=== PATIENT | female | born 1960 | race African-American/Black ===

== ENCOUNTER 2016-06-26 10:06 | Emergency (ER) | payer OTHER ==
[2016-06-26 10:12] VITALS: BP 131/80
--- NOTE | 2016-06-26 10:15 | ER Document Report ---
ED Medical Screen (RME) - General Stated Complaint: SORE THROAT Mode of Arrival: Ambulatory Information source: Patient Notes: Patient complains of diarrhea and sore throat for the past 3 days. Patient reports fever off and on. Patient reports diarrhea 2 episodes today. I have greeted and performed a rapid initial assessment of this patient. A comprehensive ED assessment and evaluation of the patient, analysis of test results and completion of the medical decision making process will be conducted by additional ED providers. TRAVEL OUTSIDE OF THE [place] IN LAST 30 DAYS: No - Related Data Allergies/Adverse Reactions: Penicillins Allergy (Intermediate, Verified 04/26/15 11:30) Generalized rash Past Medical History - Past Medical History Cardiac Medical History: Denies: Hx Coronary Artery Disease, Hx Heart Attack, Hx Hypertension Pulmonary Medical History: Reports: Hx Pneumonia - YEARS AGO Denies: Hx Asthma, Hx Bronchitis, Hx COPD Neurological Medical History: Denies: Hx Cerebrovascular Accident, Hx Seizures Musculoskeltal Medical History: Denies Hx Arthritis Past Surgical History: Denies: Hx Hysterectomy - Immunizations Hx Diphtheria, Pertussis, Tetanus Vaccination: Yes Physical Exam - Vital signs Vitals: Temp Pulse Resp BP Pulse Ox 99.0 F 79 16 131/80 H 96 06/26/16 10:10 06/26/16 10:10 06/26/16 10:10 06/26/16 10:10 06/26/16 10:10 - HEENT Pharynx: Erythema. No: Exudate, Potential airway comprom. Course - Vital Signs Vital signs: Temp Pulse Resp BP Pulse Ox 99.0 F 79 16 131/80 H 96 06/26/16 10:10 06/26/16 10:10 06/26/16 10:10 06/26/16 10:10 06/26/16 10:10
--- NOTE | 2016-06-26 11:38 | ER Document Report ---
[id number] Mode of Arrival: Ambulatory Information source: Patient Notes: 55-year-old female presents with complaints of a sore throat. 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 Patient notes multiple sick contacts. Admits to fevers denies any nausea vomiting admits to body aches TRAVEL OUTSIDE OF THE [place] IN LAST 30 DAYS: No - HPI Onset: Other - Three-day duration Onset/Duration: Persistent Quality of pain: Achy Severity: Mild Pain Level: 1 Associated symptoms: Fever, Sore throat Exacerbated by: Food Relieved by: Denies Similar symptoms previously: No Recently seen / treated by doctor: No - Related Data Allergies/Adverse Reactions: Penicillins Allergy (Intermediate, Verified 06/26/16 10:17) Generalized rash Past Medical History - General Information source: Patient - Social History Smoking Status: Never Smoker Cigarette use (# per day): No Chew tobacco use (# tins/day): No Smoking Education Provided: No Family History: Reviewed & Not Pertinent Patient has suicidal ideation: No Patient has homicidal ideation: No - Past Medical History Cardiac Medical History: Denies: Hx Coronary Artery Disease, Hx Heart Attack, Hx Hypertension Pulmonary Medical History: Reports: Hx Pneumonia - YEARS AGO Denies: Hx Asthma, Hx Bronchitis, Hx COPD Neurological Medical History: Denies: Hx Cerebrovascular Accident, Hx Seizures Renal/ Medical History: Denies: Hx Peritoneal Dialysis Musculoskeltal Medical History: Denies Hx Arthritis Past Surgical History: Denies: Hx Hysterectomy - Immunizations Hx Diphtheria, Pertussis, Tetanus Vaccination: Yes Review of Systems - Review of Systems Notes: PHYSICAL EXAMINATION: GENERAL: Well-appearing, well-nourished and in no acute distress. HEAD: Atraumatic, normocephalic. EYES: Pupils equal round and reactive to light, extraocular movements intact, conjunctiva are normal. ENT: Nares patent, oropharynx clear without exudates. Moist mucous membranes. NECK: Normal range of motion, supple without lymphadenopathy uvula midline airway patent LUNGS: Breath sounds clear to auscultation bilaterally and equal. No wheezes rales or rhonchi. HEART: Regular rate and rhythm without murmurs ABDOMEN: Soft, nontender, nondistended abdomen. No guarding, no rebound. No masses appreciated. Female : deferred Musculoskeletal: Normal range of motion, no pitting or edema. No cyanosis. NEUROLOGICAL: Cranial nerves grossly intact. Normal speech, normal gait. Normal sensory, motor exams PSYCH: Normal mood, normal affect. SKIN: Warm, Dry, normal turgor, no rashes or lesions noted. Physical Exam - Vital signs Vitals: Temp Pulse Resp BP Pulse Ox 99.0 F 79 16 131/80 H 96 06/26/16 10:10 06/26/16 10:10 06/26/16 10:10 06/26/16 10:10 06/26/16 10:10 Course - Re-evaluation Re-evalutation: 06/26/16 20:45 Patient is positive for strep, notes hives tonight penicillin, patient notes she 's never had any issues with amoxicillin before. I will discharge the patient on amoxicillin with the understanding that she return immediately if there are any other concerns After performing a Medical Screening Examination, I estimate there is LOW risk for ACUTE CORONARY SYNDROME, RESPIRATORY FAILURE, SEPSIS OR MENINGITIS, thus I consider the discharge disposition reasonable. The patient and I have discussed the diagnosis and risks, and we agree with discharging home with close follow- up. We also discussed returning to the Emergency Department immediately if new or worsening symptoms occur. We have discussed the symptoms which are most concerning (e.g., changing or worsening pain, trouble swallowing or breathing, neck stiffness, fever) that necessitate immediate return. - Vital Signs Vital signs: Temp Pulse Resp BP Pulse Ox 99.0 F 79 16 131/80 H 96 06/26/16 10:10 06/26/16 10:10 06/26/16 10:10 06/26/16 10:10 06/26/16 10:10 Discharge - Discharge Clinical Impression: Strep pharyngitis Fever Qualifiers: Fever type: unspecified Qualified Code(s): R50.9 - Fever, unspecified Condition: Stable Disposition: HOME, SELF-CARE Instructions: Strep Throat ([facility]) Additional Instructions: Follow up with your physician tomorrow for further care or return to the ED IMMEDIATELY if symptoms worsen or new concerns occur Prescriptions: Amoxicillin 875 mg PO BID #20 tablet Forms: Return to Work
== END 2016-06-26 11:45 | disposition home or self-care (01) ==
LOC: ER 10:06
DX: J02.0 Streptococcal pharyngitis (principal); R50.9 Fever, unspecified; Z88.0 Allergy status to penicillin
CPT/HCPCS: 87880; 99283

== ENCOUNTER 2019-06-10 16:20 | Emergency (ER) | payer OTHER ==
[2019-06-10] MEDS ORDERED: ACETAMINOPHEN 325 MG TABLET PO ONE (17:43)
--- NOTE | 2019-06-10 17:43 | ER Document Report ---
ED Medical Screen (RME) - General Chief Complaint: High Blood Pressure Stated Complaint: HIGH BLOOD PRESSURE Time Seen by Provider: 06/10/19 17:33 Primary Care Provider: [facility] [Provider Group] - Follow up as needed [facility] [Provider Group] - Follow up as needed Mode of Arrival: Ambulatory Information source: Patient Notes: 58-year-old female presented to ED for complaint of sinus pressure, headache, dizzy at work, and high blood pressure. She does have a history of high blood pressure. Her blood pressure is 158/82 in the emergency room. She states that her primary care doctor has told her that she is going to give her blood pressure medicine the next time she sees her. She states she is having a headache at this time. Lungs clear respirations regular nonlabored. She does have sinus congestion nasal turbinates are swollen and purulent drainage. She does have postnasal drip. TRAVEL OUTSIDE OF THE [place] IN LAST 30 DAYS: No - HPI Onset: Other - 4 days Onset/Duration: Intermittent Quality of pain: Achy, Pressure Severity: Moderate Pain Level: 4 Associated Symptoms: Cough (nonproductive), Headache, Rhinorrhea, Sinus pain/drainage Exacerbated by: Movement, Coughing Relieved by: Denies Similar symptoms previously: Yes Recently seen / treated by doctor: No - Related Data Smoking: Non-smoker Allergies/Adverse Reactions: Penicillins Allergy (Intermediate, Verified 06/10/19 17:33) Generalized rash Past Medical History - General Information source: Patient - Social History Cigarette use (# per day): No Chew tobacco use (# tins/day): No Frequency of alcohol use: None Drug Abuse: None Lives with: Family Family history: Reviewed & Not Pertinent - Past Medical History Cardiac Medical History: Reports: Hx Hypertension Pulmonary Medical History: Reports: Hx Pneumonia - YEARS AGO Neurological Medical History: Reports: None Endocrine Medical History: Reports: None Renal/ Medical History: Reports: Other - Fibroids Malignancy Medical History: Reports: None GI Medical History: Reports: Hx Colonoscopy Musculoskeltal Medical History: Reports Hx Musculoskeletal Deformity, Reports Hx Musculoskeletal Trauma Skin Medical History: Reports None Psychiatric Medical History: Reports: None Traumatic Medical History: Reports: None Infectious Medical History: Reports: None - Still Past Surgical History: Reports: Hx Section, Hx Orthopedic Surgery - Immunizations Hx Diphtheria, Pertussis, Tetanus Vaccination: Yes Review of Systems - Review of Systems Constitutional: Recent illness EENT: No symptoms reported, Nose congestion, Nose discharge, Sinus pressure, Sinus discharge Cardiovascular: No symptoms reported Respiratory: Cough Gastrointestinal: No symptoms reported Genitourinary: No symptoms reported Female Genitourinary: No symptoms reported Musculoskeletal: No symptoms reported Skin: No symptoms reported Hematologic/Lymphatic: No symptoms reported Neurological/Psychological: Headaches -: Yes All other systems reviewed and negative Physical Exam - Vital signs Vitals: Temp Pulse Resp BP Pulse Ox 98.7 F 70 20 158/84 H 97 06/10/19 16:56 06/10/19 16:56 06/10/19 16:56 06/10/19 16:56 06/10/19 16:56 Interpretation: Normal - General General appearance: Appears well, Alert - HEENT Head: Normocephalic, Atraumatic Eyes: Normal Pupils: PERRL Ears: Normal External canal: Normal Tympanic membrane: Normal Sinus: Normal Nasal: Purulent discharge, Swelling Mouth/Lips: Normal Mucous membranes: Normal Pharynx: Post nasal drainage Neck: Normal - Respiratory Respiratory status: No respiratory distress Chest status: Nontender Breath sounds: Nonproductive cough Chest palpation: Normal - Cardiovascular Rhythm: Regular Heart sounds: Normal auscultation Murmur: No - Abdominal Inspection: Normal Distension: No distension Bowel sounds: Normal Tenderness: Nontender Organomegaly: No organomegaly - Back Back: Normal, Nontender - Extremities General upper extremity: Normal inspection, Nontender, Normal color, Normal ROM, Normal temperature General lower extremity: Normal inspection, Nontender, Normal color, Normal ROM, Normal temperature, Normal weight bearing. No: Tanisha's sign - Neurological Neuro grossly intact: Yes Cognition: Normal Orientation: AAOx4 Edward Coma Scale Eye Opening: Spontaneous Edward Coma Scale Verbal: Oriented Steedman Coma Scale Motor: Obeys Commands Edward Coma Scale Total: 15 Speech: Normal Motor strength normal: LUE, RUE, LLE, RLE Sensory: Normal - Psychological Associated symptoms: Normal affect, Normal mood - Skin Skin Temperature: Warm Skin Moisture: Dry Skin Color: Normal Course - Re-evaluation Re-evalutation: 06/10/19 20:52 After performing a Medical Screening Examination, I estimate there is LOW risk for ACUTE CORONARY SYNDROME, RESPIRATORY FAILURE, SEPSIS OR MENINGITIS, thus I consider the discharge disposition reasonable. I have reevaluated this patient multiple times and no significant life threatening changes are noted. The patient and I have discussed the diagnosis and risks, and we agree with discharging home with close follow-up. We also discussed returning to the Emergency Department immediately if new or worsening symptoms occur. We have discussed the symptoms which are most concerning (e.g., changing or worsening pain, trouble swallowing or breathing, neck stiffness, fever) that necessitate immediate return. Patient was also given instructions for control of her cough and cold symptoms to include headache nasal congestion runny nose. She does have elevated blood pressure was told not to use any of the normal cough and cold medicine as these would elevate her blood pressure she needs to use Coricidin HBP. Patient verbalized understanding and agreement treatment plan. - Vital Signs Vital signs: Temp Pulse Resp BP Pulse Ox 98.0 F 70 20 147/86 H 99 06/10/19 20:32 06/10/19 16:56 06/10/19 20:32 06/10/19 20:32 06/10/19 20:32 - Diagnostic Test Radiology reviewed: Image reviewed, Reports reviewed Doctor's Discharge - Discharge Clinical Impression: URI (upper respiratory infection) Qualifiers: URI type: unspecified viral URI Qualified Code(s): J06.9 - Acute upper respiratory infection, unspecified Condition: Stable Disposition: HOME, SELF-CARE Additional Instructions: UPPER RESPIRATORY ILLNESS: You have a viral infection of the respiratory passages -- a "cold." This common infection causes nasal congestion, drainage, and often sore throat and cough. It is highly contagious. The disease usually lasts about 10 to 14 days. There is no "cure" for the viral infection -- it must run its course. If there is a complication, such as bacterial infection in the nose, sinuses, middle ear, or bronchial tubes, antibiotics may be required. The antibiotics won't affect the virus. Drink plenty of fluids. A humidifier may help. An expectorant medication or decongestant may make you more comfortable. Use acetaminophen or ibuprofen for fever or aches. See the doctor if fever persists over two days, if there is any significant worsening of your symptoms, or if you simply fail to improve as expected. You have been recommended treatment with single HP. You could also use Flonase which is exmp-[id number] 1 spray each nostril twice a day. You could also use salt soda solution gargles. These will help to remove the drainage from the back your throat. Chloraseptic spray was infp-mql-[id number] that will also help with your sore throat. Salt and soda solution gargle 1 quart of water 1 tablespoon of salt 1 teaspoon of baking soda Mixed 3 ingredients together and boil for 1 minute Placed in a covered quart jar Use 1/2 ounce of cold solution to gargle 3 times a day USE OF ACETAMINOPHEN (Tylenol): Acetaminophen may be taken for pain relief or fever control. It's much safer than aspirin, offering a wider range of "safe" dosages. It is safe during . Some brand names are Tylenol, Panadol, Datril, Anacin 3, Tempra, and Liquiprin. Acetaminophen can be repeated every four hours. The following are maximum recommended dosages: >89 pounds or adults 650 mg to 900 mg Acetaminophen can be repeated every four hours. Maximum dose not to exceed 4000 mg a day. FOLLOW-UP CARE: If you have been referred to a physician for follow-up care, call the physicians office for an appointment as you were instructed or within the next two days. If you experience worsening or a significant change in your symptoms, notify the physician immediately or return to the Emergency Department at any time for re-evaluation. Forms: Return to Work Referrals: [facility] [Provider Group] - Follow up as needed [facility] [Provider Group] - Follow up as needed
--- NOTE | 2019-06-10 17:59 | RADIOLOGY REPORT (SQ) ---
EXAM DESCRIPTION: CHEST 2 VIEWS COMPLETED DATE/TIME: 06/10/2019 5:50 pm REASON FOR STUDY: cough COMPARISON: 09/26/2011. EXAM PARAMETERS: NUMBER OF VIEWS: two views TECHNIQUE: Digital Frontal and Lateral radiographic views of the chest acquired. RADIATION DOSE: NA LIMITATIONS: none FINDINGS: LUNGS AND PLEURA: No opacities, masses or pneumothorax. No pleural effusion. MEDIASTINUM AND HILAR STRUCTURES: No masses or contour abnormalities. HEART AND VASCULAR STRUCTURES: Heart normal size. No evidence for failure. BONES: No acute findings. HARDWARE: None in the chest. OTHER: No other significant finding. IMPRESSION: NO ACUTE RADIOGRAPHIC FINDING IN THE CHEST. TECHNICAL DOCUMENTATION: JOB ID: [id number] [email or web address]- All Rights Reserved Reading location - IP/workstation name: [email or web address]
[2019-06-10 20:33] VITALS: BP 147/86
== END 2019-06-10 20:33 | disposition home or self-care (01) ==
LOC: ER 16:20
DX: R51 Headache (principal); R42 Dizziness and giddiness; R09.81 Nasal congestion; R09.82 Postnasal drip; R05 Cough; J34.89 Other specified disorders of nose and nasal sinuses; J06.9 Acute upper respiratory infection, unspecified; I10 Essential (primary) hypertension; Z79.899 Other long term (current) drug therapy
CPT/HCPCS: 71046; 99283

== ENCOUNTER 2020-01-26 12:27 | Inpatient (IN) | payer OTHER ==
[2020-01-26] MEDS ORDERED: RINGERS SOLUTION,LACTATED 1,000 ML IV ONE (13:26)
--- NOTE | 2020-01-26 13:28 | ER Document Report ---
ED General - General Chief Complaint: Shortness Of Breath Stated Complaint: SHORTNESS OF BREATH/COUGHING BLOOD Time Seen by Provider: 01/26/20 13:12 TRAVEL OUTSIDE OF THE [place] IN LAST 30 DAYS: No - HPI Notes: Patient is a 59-year-old female who presents to the emergency department for evaluation of shortness of breath, hemoptysis, cough. She states her cough started for 5 days ago. She had a telehealth visit with her primary care provider, who started her on something "for mucus." She states she has been taking that. Yesterday she started feeling short of breath. She states now she is coughing up intermittent amounts of bright red blood. She has pain in her chest and in her back. She states it primarily only hurts when she is coughing. Her shortness of breath is worsened by exertion, improved somewhat by rest. She denies any recent prolonged travel or immobilization. She has no recent surgeries. No personal history of cancer. No family history of blood clots to her knowledge. She denies any fevers. She states she had some nausea last week but it has resolved. She had diarrhea 2 weeks ago, but it has resolved as well. - Related Data Allergies/Adverse Reactions: Penicillins Allergy (Intermediate, Verified 01/26/20 12:56) Generalized rash Home Medications: Norvasc and medication for congestion Past Medical History - General Information source: Patient - Social History Smoking Status: Never Smoker Frequency of alcohol use: None Drug Abuse: None Family History: None, Reviewed & Not Pertinent - Past Medical History Cardiac Medical History: Reports: Hx Hypertension Pulmonary Medical History: Reports: Hx Pneumonia - YEARS AGO GI Medical History: Reports: Hx Colonoscopy Musculoskeletal Medical History: Reports Hx Musculoskeletal Deformity, Reports Hx Musculoskeletal Trauma Past Surgical History: Reports: Hx Section - X2, Hx Orthopedic Surgery - Right shoulder - Immunizations Hx Diphtheria, Pertussis, Tetanus Vaccination: Yes Review of Systems - Review of Systems Constitutional: Weakness EENT: No symptoms reported Cardiovascular: No symptoms reported Respiratory: See HPI Gastrointestinal: See HPI Genitourinary: No symptoms reported Musculoskeletal: No symptoms reported Skin: No symptoms reported Neurological/Psychological: No symptoms reported Physical Exam - Vital signs Vitals: Temp Pulse Resp BP Pulse Ox 99.7 F 115 H 22 H 133/85 H 88 L 01/26/20 12:40 01/26/20 12:40 01/26/20 12:40 01/26/20 12:40 01/26/20 12:40 - Notes Notes: This is a 59-year-old female who appears her stated age, in a mild amount of distress. She is mildly tachypneic. Vital signs reviewed, please refer to chart. Head is normocephalic, atraumatic. Pupils equal round, reactive to light. Neck is supple without meningismus. Heart is tachycardic with normal S1-S2. Lungs reveal diminished sounds without wheezes, rales, rhonchi. Abdomen is soft, nontender, normoactive bowel sounds throughout. Extremities without cyanosis, clubbing. Posterior calves are nontender. Peripheral pulses are equal. Skin is warm and dry. Patient is awake, alert, neurological exam is nonfocal. Course - Re-evaluation Re-evalutation: 01/26/20 13:28 Patient presents to the emergency department for evaluation. She is found be hypoxic. She is placed on a dock operator, oxygen per nasal cannula. She has an IV ordered, as well as blood work. Given her tachycardia, chest pain, and hemoptysis, I am concerned about the possibility of a pulmonary embolus in this patient, despite her lack of risk factors. Decision was made to proceed with CT angiogram of the chest. I have also ordered blood cultures and lactic acid. Patient is currently stable, we will continue to monitor. 01/26/20 15:48 I was contacted by radiology, notified that patient has multiple pulmonary emboli bilaterally with associated pulmonary infarctions. She is also starting to show right heart strain. I went back in and saw the patient. I will start her on heparin, as I am concerned given the fact that she is having some hemoptysis. She does not have any other significant risk factors, so I am concerned about positive COVID 19 testing. I will cover her for pneumonia as well with Rocephin and Zithromax. I will contact internal medicine for admission. 01/26/20 15:[address] Nelson of the internal medicine service. He is concerned about her right heart strain. He recommends an echocardiogram to evaluate the degree of right heart strain. He is concerned that, depending on the degree of her rig ht heart strain, that she may need transfer for possible catheter directed thrombolysis. I spoke with Dr. Pichardo, he is agreeable to interpreting the study. 01/26/20 18:08 Right heart was not adequately assessed. I did call the hospitalist back, he again states that the patient would be best served by going to a tertiary center. I called [facility] at [phone]. They have no beds, no wait list at this time. I contacted [facility]. They do have a wait list, but I am awaiting phone call from hospitalist. I do suspect COVID is likely etiology of this patient's bilateral pulmonary emboli, so I am expecting a phone call from the COVID physician. 01/26/20 18:50 Notified by nursing that patient was complaining of an increase in her right- sided chest pain. Her vitals remained stable. Morphine and Zofran ordered. 01/26/20 19:[address] Kaba, on-call COVID physician at [facility]. She is going to discuss current protocols for excepting rule out COVID patients with the [facility]. She will reach out when she has more information. 01/26/20 19:35 Physician from [facility] calls me back. She states that she does not see any indication for transfer at this time, as she does not believe that any sort of intervention is necessary at this time, secondary to her lack of hemodynamic instability. She recommends ICU admission. I will speak to the ICU core maker. Farhan Berkowitz, ELDA, will come down and evaluate the patient. 01/26/20 20:04 The core maker nurse practitioner came down and evaluated the patient. The patient is feeling improved. She could not appreciate any right ventricular dilation on the patient's exams. She agrees that keeping the patient here is a very reasonable plan. I spoke with Dr. Cardenas. He will admit the patient for further care. COVID testing for this patient is already pending. - Vital Signs Vital signs: Temp Pulse Resp BP Pulse Ox 99.7 F 115 H 26 H 152/102 H 91 L 01/26/20 12:40 01/26/20 12:40 01/26/20 18:01 01/26/20 19:00 01/26/20 19:01 - Laboratory Result Diagrams: 01/26/20 13:50 01/26/20 13:50 Laboratory results interpreted by me: 01/26/20 01/26/20 01/26/20 13:50 13:50 13:50 WBC 14.7 H Plt Count 507 H Lymph % (Auto) 12.8 L Absolute Neuts (auto) 11.3 H PT 15.8 H Glucose 138 H - Diagnostic Test Radiology reviewed: Reports reviewed Radiology results interpreted by me: 01/26/20 15:50 Chest X-Ray 01/26/20 00:00 IMPRESSION: Low lung volumes. Right pleural effusion. Cannot exclude minimal left pleural effusion. Borderline heart size as described. No karson pulmonary edema. Chest/Abdomen CTA 01/26/20 13:24 IMPRESSION: Multiple bilateral segmental and subsegmental pulmonary emboli with findings of early right heart strain. While peripheral multifocal airspace opacities may represent small pulmonary infarcts, superimposed infection is not excluded. - EKG Interpretation by Me Additional EKG results interpreted by me: 01/26/20 15:50 Sinus tachycardia at the rate of 109 bpm. Normal axis and intervals. T wave inversions, near global, concerning for ischemia. No old studies available for comparison. Critical Care Note - Critical Care Note Total time excluding time spent on procedures (mins): 40 Discharge - Discharge Clinical Impression: Hypoxia, Bilateral pulmonary embolism, Person under investigation for COVID-19 Condition: Stable Disposition: ADMITTED INPATIENT Admitting Provider: Ronald (Hospitalist) Unit Admitted: [facility]
[2020-01-26 14:16] LABS: ABSOLUTE BASOPHILS # (AUTO) 0.1 10^3/uL (0.0-0.2); ABSOLUTE LYMPHOCYTES (AUTO) 1.9 10^3/uL (0.5-4.7); ABSOLUTE MONOCYTES (AUTO) 1.4 10^3/uL (0.1-1.4); ABSOLUTE NEUT (AUTO) 11.3 10^3/uL (1.7-8.2); BASOPHILS % (AUTO) 0.5 % (0-2); EOSINOPHILS % (AUTO) 0.1 % (0-6); HEMATOCRIT 38.7 % (36.0-47.0); HEMOGLOBIN 13.2 g/dL (12.0-15.5); LYMPHOCYTES % (AUTO) 12.8 % (13-45); MEAN CORPUSCULAR HEMOGLOBIN 28.3 pg (27.0-33.4); MEAN CORPUSCULAR HGB CONC 34.1 g/dL (32.0-36.0); MEAN CORPUSCULAR VOLUME 83 fl (80-97); MONOCYTES % (AUTO) 9.8 % (3-13); PLATELET COUNT 507 10^3/uL (150-450); RED BLOOD COUNT 4.67 10^6/uL (3.72-5.28); RED CELL DISTRIBUTION WIDTH 13.3 % (11.5-14.0); SEGMENTED NEUTROPHILS % (AUTO) 76.8 % (42-78); TOTAL CELLS COUNTED % (AUTO) 100 %; WHITE BLOOD COUNT 14.7 10^3/uL (4.0-10.5)
--- NOTE | 2020-01-26 14:18 | RADIOLOGY REPORT (SQ) ---
EXAM DESCRIPTION: CHEST SINGLE VIEW IMAGES COMPLETED DATE/TIME: 01/26/2020 1:47 pm REASON FOR STUDY: shortness of breath COMPARISON: 01/09/2020 EXAM PARAMETERS: NUMBER OF VIEWS: One view. TECHNIQUE: Single frontal radiographic view of the chest acquired. RADIATION DOSE: NA LIMITATIONS: None. FINDINGS: LUNGS AND PLEURA: Low lung volumes. Cannot exclude moderate right pleural effusion and mi nimal left pleural effusion. MEDIASTINUM AND HILAR STRUCTURES: No masses. Contour normal. HEART AND VASCULAR STRUCTURES: Heart size is borderline, accentuated by the low lung volumes. No fra nk pulmonary edema. BONES: No acute findings. HARDWARE: None in the chest. OTHER: No other significant finding. IMPRESSION: Low lung volumes. Right pleural effusion. Cannot exclude minimal left pleural effusion . Borderline heart size as described. No karson pulmonary edema. TECHNICAL DOCUMENTATION: JOB ID: [id number] 2010 [employer]- All Rights Reserved Reading location - IP/workstation name: [email or web address]
[2020-01-26 14:31] LABS: ALBUMIN 4.1 g/dL (3.5-5.0); ALKALINE PHOSPHATASE 88 U/L (38-126); ANION GAP 9 (5-19); ASPARTATE AMINO TRANSFERASE 30 U/L (14-36); BILIRUBIN,DIRECT 0.4 mg/dL (0.0-0.4); BILIRUBIN,TOTAL 0.7 mg/dL (0.2-1.3); BLOOD UREA NITROGEN 7 mg/dL (7-20); CALCIUM 9.3 mg/dL (8.4-10.2); CARBON DIOXIDE 29 mmol/L (22-30); CHLORIDE 101 mmol/L (98-107); GLUCOSE 138 mg/dL (75-110); TOTAL PROTEIN 7.9 g/dL (6.3-8.2)
--- NOTE | 2020-01-26 14:35 | EKG REPORT ---
SEVERITY:- ABNORMAL ECG - SINUS TACHYCARDIA PROBABLE LEFT ATRIAL ABNORMALITY NONSPECIFIC T ABNORMALITIES, DIFFUSE LEADS : Confirmed by: Misty Pichardo MD 26-Jan-2020 14:34:40
[2020-01-26] MEDS ORDERED: ENOXAPARIN SODIUM INJ 80 MG/0.8 ML DISP.SYRIN SUBCUT ONE (15:38)
--- NOTE | 2020-01-26 15:43 | RADIOLOGY REPORT (SQ) ---
EXAM DESCRIPTION: CTA CHEST IMAGES COMPLETED DATE/TIME: 01/26/2020 3:19 pm REASON FOR STUDY: chest pain, tachycardia, hemoptysis COMPARISON: Chest radiograph 01/26/2020 TECHNIQUE: CT scan of the chest performed using helical scanning technique with dynamic intravenous contrast injection. Images reviewed with lung, soft tissue and bone windows. Reconstructed coronal and sagittal MPR images reviewed. Additional 3 dimensional post-processing performed to develop Maximal Intensity Projection images (DE P). All images stored on PACS. All CT scanners at this facility use dose modulation, iterative reconstruction, and/or weight based d osing when appropriate to reduce radiation dose to as low as reasonably achievable (ALARA). [facility]: Dose Right [facility]: CareDose [facility]: Dose Right [facility]: Teradose 4D [facility]: OpenSpan CONTRAST TYPE AND DOSE: contrast/concentration: Isovue 350.00 mmol/ml; Total Contrast Delivered: 59. 0 ml; Total Saline Delivered: 70.0 ml Contrast bolus adequate for pulmonary arteries and aorta. RENAL FUNCTION: BUN 7; creatinine 0.86 RADIATION DOSE: CT Rad equipment meets quality standard of care and radiation dose reduction techniq ues were employed. CTDIvol: 9.9 - 26.6 mGy. DLP: 819 mGy-cm. . LIMITATIONS: None. FINDINGS: LUNGS AND PLEURA: Small multifocal airspace opacities in a predominantly peripheral distri bution with bibasilar consolidation versus atelectasis. Trace pleural effusion. No pneumothorax. AORTA AND GREAT VESSELS: No aneurysm. No dissection. HEART: No pericardial effusion. No significant coronary artery calcifications. PULMONARY ARTERIES: Pulmonary emboli are seen bilaterally within the segmental and extending into the subsegmental branches. Note is made of mild right heart strain. HILAR AND MEDIASTINAL STRUCTURES: Scattered mediastinal lymph nodes appear mildly prominent. HARDWARE: None in the chest. UPPER ABDOMEN: No significant findings. Limited exam. THYROID AND OTHER SOFT TISSUES: No masses. No adenopathy. BONES: No acute or significant finding. 3D MIPS: Confirm above findings. OTHER: No other significant finding. IMPRESSION: Multiple bilateral segmental and subsegmental pulmonary emboli with findings of early ri ght heart strain. While peripheral multifocal airspace opacities may represent small pulmonary infar cts, superimposed infection is not excluded. COMMENT: This report was called to TAMIKA GLASS DO at15:34 on 01/26/2020. Quality ID # [id number]: Final reports with documentation of one or more dose reduction techniques (e.g., Au tomated exposure control, adjustment of the mA and/or kV according to patient size, use of iterative reconstruction technique) TECHNICAL DOCUMENTATION: JOB ID: [id number] 2010 [employer]- All Rights Reserved Reading location - IP/workstation name: [email or web address] INCLUDES THE [facility] HOSPITALRomulo
[2020-01-26] MEDS ORDERED: HEPARIN SODIUM,PORCINE/D5W 25,000 UNIT/250 ML RTUINJ IV PRN (15:45)
[2020-01-26] MEDS ORDERED: HEPARIN SOD (PORCINE) 1,000 UNIT/ML 10 ML VIAL IV ONE (15:45)
[2020-01-26] MEDS ORDERED: CEFTRIAXONE 1 GM/D5W RTU 1 GM/50 ML RTUPB IV ONE (15:47)
[2020-01-26] MEDS ORDERED: AZITHROMYCIN INJ 500 MG VIAL IV ONE ×2 (15:47→19:15)
--- NOTE | 2020-01-26 17:47 | XCELERA REPORT ---
[address] [address] Transthoracic Echocardiogram Report Name: DIANA ZABALA Age: 59 yrs Gender: Female : 1960 Patient Status: Emergency Patient Location: ER Study Date: 01/26/2020 03:22 PM Height: 60 in Weight: 174 lb BSA: 1.8 m2 Procedure: A two-dimensional transthoracic echocardiogram with color flow and Doppler was performed. The study was technically limited with all images being suboptimal in quality. Reason For Study: eval right heart, BL PEs History: RrIGHT hEART fAILURE / bILATERAL PULMONARY EMBOLISM. Ordering Physician: TAMIKA GLASS Performed By: Alesia Quach Interpretation Summary RrIGHT hEART fAILURE / bILATERAL PULMONARY EMBOLISM The left ventricle is normal in size. There is normal left ventricular wall thickness. LV EF is 65% Left ventricular systolic function is normal. Doppler measurements suggest pseudonormalized left ventricular relaxation, which is associated with grade II/IV or mild to moderate diastolic dysfunction The left ventricular wall motion is normal. There is no thrombus. cANNOT ASSESS ASD,VSD,OR PFO SEEN. RV NOT ADEQAUTELY ASSESSED. Right atrium not well visualized secondary to technical limitations The left atrial size is normal. There is no evidence of mitral valve prolapse. There is no vegetation seen on the mitral valve. There is no mitral valve stenosis. There is a trace amount of mitral regurgitation There is no aortic valvular vegetation. There is no aortic valve stenosis There is no LVOT obstruction. No aortic regurgitation is present. There is no tricuspid stenosis. There is a trace amount of tricuspid regurgitation There is mild pulmonary hypertension by echo RVSP is 34 mm of Hg , with RA mean of 10. There is no pulmonic valvular stenosis. There is no pulmonic valvular regurgitation. The aortic root is not well visualized but is probably normal size. The inferior vena cava was not well visualized There is no pericardial effusion. MMode/2D Measurements & Calculations RVDd: 1.9 cm LVIDd: 3.8 cm FS: 30.4 % Ao root diam: 1.8 cm IVSd: 0.76 cm LVIDs: 2.6 cm EDV(Teich): 61.2 ml Ao root area: 2.5 cm2 LVPWd: 0.86 cm ESV(Teich): 25.3 ml EF(Teich): 58.6 % Doppler Measurements & Calculations MV E max soto: MV dec slope: Ao V2 max: LV V1 max P.3 cm/sec 529.2 cm/sec2 154.4 cm/sec 5.7 mmHg MV A max soto: MV dec time: 0.15 secAo max PG: LV V1 max: 129.6 cm/sec 9.5 mmHg 119.7 cm/sec MV E/A: 0.60 PA V2 max: TR max soto: 89.5 cm/sec 247.0 cm/sec PA max P.2 mmHg TR max P.4 mmHg Left Ventricle The left ventricle is normal in size. There is normal left ventricular wall thickness. LV EF is 65%. Left ventricular systolic function is normal. Doppler measurements suggest pseudonormalized left ventricular relaxation, which is associated with grade II/IV or mild to moderate diastolic dysfunction. The left ventricular wall motion is normal. There is no thrombus. cANNOT ASSESS ASD,VSD,OR PFO SEEN. Right Ventricle RV NOT ADEQAUTELY ASSESSED. Atria Right atrium not well visualized secondary to technical limitations. The left atrial size is normal. Mitral Valve There is no evidence of mitral valve prolapse. There is no vegetation seen on the mitral valve. There is no mitral valve stenosis. There is a trace amount of mitral regurgitation. Aortic Valve There is no aortic valvular vegetation. There is no aortic valve stenosis. There is no LVOT obstruction. No aortic regurgitation is present. Tricuspid Valve There is no tricuspid stenosis. There is a trace amount of tricuspid regurgitation. There is mild pulmonary hypertension by echo. RVSP is 34 mm of Hg , with RA mean of 10. Pulmonic Valve There is no pulmonic valvular stenosis. There is no pulmonic valvular regurgitation. Great Vessels The aortic root is not well visualized but is probably normal size. The inferior vena cava was not well visualized. Effusions There is no pericardial effusion. : TAMIKA GLASS, Misty
[2020-01-26 18:24] LABS: INTERNATIONAL RATION (INR) 1.25; PROTHROMBIN TIME 15.8 SEC (11.4-15.4)
[2020-01-26] MEDS ORDERED: HEPARIN SOD (PORCINE) 1,000 UNIT/ML 10 ML VIAL IV PRN (18:46)
[2020-01-26] MEDS ORDERED: MORPHINE SULFATE 10 MG/ML INJ IV ONE (18:48)
[2020-01-26] MEDS ORDERED: ONDANSETRON HCL INJ/PF 4 MG/2 ML SDV IV ONE (18:49)
[2020-01-26] MEDS ORDERED: OXYCODONE-ACETAMINOPHEN 5-325 MG TABLET PO PRN ×2 (20:44→20:52)
[2020-01-26] MEDS ORDERED: PROMETHAZINE HCL INJ 25 MG/1 ML VIAL IV PRN (20:44)
[2020-01-26] MEDS ORDERED: ONDANSETRON HCL INJ/PF 4 MG/2 ML SDV IV PRN (20:44)
[2020-01-26] MEDS ORDERED: IPRATROPIUM/ALBUTEROL 0.5-2.5 MG/3 ML AMPUL NEB PRN (20:44)
[2020-01-26] MEDS ORDERED: ACETAMINOPHEN 325 MG TABLET PO PRN (20:44)
[2020-01-26] MEDS ORDERED: MORPHINE SULFATE 10 MG/ML INJ IV PRN (20:51)
[2020-01-26] MEDS ORDERED: METOPROLOL TARTRATE PF/INJ 5 MG/5 ML SDV IV PRN (20:53)
[2020-01-26] MEDS ORDERED: HYDRALAZINE HCL INJ/PF 20 MG/1 ML SDV IV PRN (20:54)
[2020-01-26] MEDS: TEMAZEPAM 7.5 MG CAPSULE PO SCH (21:36)
[2020-01-26] MEDS: FAMOTIDINE 20 MG TABLET PO SCH (21:36)
[2020-01-26 21:55] LABS: ARTERIAL BLOOD BASE EXCESS 2.7 mmol/L; ARTERIAL BLOOD FIO2 4L; ARTERIAL BLOOD HCO3 26.9 mmol/L (20-24); ARTERIAL BLOOD O2 SATURATION 93.7 % (94-98); ARTERIAL BLOOD PCO2 39.8 mmHg (35-45); ARTERIAL BLOOD PH 7.45 (7.35-7.45); ARTERIAL BLOOD PO2 65.3 mmHg (80-100); ARTERIAL BLOOD TOTAL CO2 28.1 mmol/L (21-25)
[2020-01-26 21:59] LABS: C-REACTIVE PROTEIN 242.2 mg/L (<10.0)
--- NOTE | 2020-01-26 23:19 | PDOC H&P ---
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 In ED she was noted to be hypoxic, tachypneic, tachycardic, hypertensive, with leukocytosis and a CTA showed multiple bilateral segmental subsegmental pulmonary emboli with findings of early right heart strain, EKG T wave inversion and troponins were negative, a stat echo was done to rule out any right heart strain but unfortunately 2D echo was suboptimal and right ventricular function could not be assessed, attempt was made to transfer patient to tertiary center however they were not able and as per ED physician they suggested that patient can be managed at [facility] as she seems to be stable. Patient denies any fever, chills, nausea, vomiting, denies any history of previous DVT or PE, any lower extremity swelling or pain, tobacco abuse, denies any history of oral contraceptive intake or recent hospitalization or surgery, denies any recent travel, denies any personal or family history of hypercoagulable state. In ED patient was started on heparin drip and empiric IV antibiotics as patient may likely have COVID-19 given her presentation and nature of her work. Past Medical History Cardiac Medical History: Reports: Hypertension Pulmonary Medical History: Reports: Pneumonia - YEARS AGO Hematology: Denies: Anemia Past Surgical History Past Surgical History: Reports: Section - X2, Orthopedic Surgery - Right shoulder Social History Smoking Status: Never Smoker Family History Family History: None, Reviewed & Not Pertinent Parental Family History Reviewed: Yes Children Family History Reviewed: Yes Sibling(s) Family History Reviewed.: Yes Medication/Allergy Home Medications: Amlodipine Besylate [Norvasc 5 mg Tablet] 5 mg PO DAILY 01/26/20 Montelukast Sodium [Singulair 10 mg Tablet] 10 mg PO QHS 01/26/20 Allergies/Adverse Reactions: Penicillins Allergy (Intermediate, Verified 01/26/20 12:56) Generalized rash Review of Systems Review of Systems: as per hpi Physical Exam Vital Signs: Temp Pulse Resp BP Pulse Ox 99.7 F 115 H 29 H 134/95 H 94 01/26/20 12:40 01/26/20 12:40 01/26/20 22:00 01/26/20 22:00 01/26/20 22:00 Intake & Output 01/25/20 01/26/20 01/27/20 06:59 06:59 06:59 Intake Total 1366 Balance 1366 Weight 79.3 kg General appearance: PRESENT: mild distress, obese Head exam: PRESENT: atraumatic, normocephalic Respiratory exam: PRESENT: clear to auscultation moe, symmetrical, tachypnea. ABSENT: rales, rhonchi, wheezes Cardiovascular exam: PRESENT: RRR, tachycardia. ABSENT: diastolic murmur, rubs, systolic murmur GI/Abdominal exam: PRESENT: normal bowel sounds, soft. ABSENT: distended, guarding, mass, organolmegaly, rebound, tenderness Extremities exam: PRESENT: full ROM. ABSENT: calf tenderness, clubbing, pedal edema Neurological exam: PRESENT: alert, awake, oriented to person, oriented to place, oriented to time, oriented to situation, CN II-XII grossly intact. ABSENT: motor sensory deficit Skin exam: PRESENT: dry, intact, warm. ABSENT: cyanosis, rash Results Laboratory Results: 01/26/20 13:50 01/26/20 13:50 01/26/20 01/26/20 01/26/20 13:50 13:50 13:50 WBC 14.7 H RBC 4.67 Hgb 13.2 Hct 38.7 MCV 83 MCH 28.3 MCHC 34.1 RDW 13.3 Plt Count 507 H Seg Neutrophils % 76.8 Carbonic Acid HCO3/H2CO3 Ratio ABG pH ABG pCO2 ABG pO2 ABG HCO3 ABG O2 Saturation ABG Base Excess FiO2 Sodium 138.7 Potassium 4.0 Chloride 101 Carbon Dioxide 29 Anion Gap 9 BUN 7 Creatinine 0.86 Est GFR ( Amer) > 60 Glucose 138 H Lactic Acid Calcium 9.3 Ferritin 156.00 Total Bilirubin 0.7 AST 30 Alkaline Phosphatase 88 C-Reactive Protein 242.2 H Total Protein 7.9 Albumin 4.1 01/26/20 01/26/20 14:53 21:41 WBC RBC Hgb Hct MCV MCH MCHC RDW Plt Count Seg Neutrophils % Carbonic Acid 1.20 HCO3/H2CO3 Ratio 22:1 ABG pH 7.45 ABG pCO2 39.8 ABG pO2 65.3 L ABG HCO3 26.9 H ABG O2 Saturation 93.7 L ABG Base Excess 2.7 FiO2 4L Sodium Potassium Chloride Carbon Dioxide Anion Gap BUN Creatinine Est GFR ( Amer) Glucose Lactic Acid 1.8 Calcium Ferritin Total Bilirubin AST Alkaline Phosphatase C-Reactive Protein Total Protein Albumin 01/26/20 01/26/20 13:50 13:50 Troponin I < 0.012 NT-Pro-B Natriuret Pep 226 H Impressions: Chest X-Ray 01/26/20 00:00 IMPRESSION: Low lung volumes. Right pleural effusion. Cannot exclude minimal left pleural effusion. Borderline heart size as described. No karson pulmonary edema. Chest/Abdomen CTA 01/26/20 13:24 IMPRESSION: Multiple bilateral segmental and subsegmental pulmonary emboli with findings of early right heart strain. While peripheral multifocal airspace opacities may represent small pulmonary infarcts, superimposed infection is not excluded. Assessment and Plan - Diagnosis (1) Acute respiratory failure with hypoxemia Is this a current diagnosis for this admission?: Yes Plan: Multifactorial likely due to underlying multiple PE, complicated by possible community-acquired pneumonia on COVID-19 infection. ABG on admission PO2 of 65.3, SPO2 of 93.7 on 4 L. Admit to IMC, empiric IV antibiotics, duo nebs, IV steroids, pulmonary toil eting, incentive spirometry, flutter valve, sputum culture, blood culture, BiPAP. (2) Bilateral pulmonary embolism Is this a current diagnosis for this admission?: Yes Plan: Presented with shortness of breath and right-sided pleuritic chest pain. CTA positive for multiple PE, likely right heart strain, unfortunately a stat echo suboptimal and right ventricle function could not be assessed. EKG with T wave inversion and troponin 0.012. Denies any previous PE or DVT, denies any history of malignancy or OCP intake, denies any history of hypercoagulable state or any rheumatological disease, denies any recent travel or prolonged hospitalization or immobilization. Admit to IMCU, repeat EKG, repeat echo if right heart strain is suspected, IV heparin drip to be transitioned to new oral anticoagulants. Monitor vitals, if unstable please transfer to tertiary care center for possible embolectomy. (3) Pneumonia Is this a current diagnosis for this admission?: Yes Plan: Likely community-acquired pneumonia due to gram-positive's including strep pneumonia, COVID-19 infection is also a strong possibility. Elevated inflammatory markers. Sputum culture, IV azithromycin, IV ceftriaxone, IV dexamethasone, blood culture. May consider effervescent plasma transfusion and Remdisivir if a strong suspicion for COVID-19. Follow-up COVID-19 serology. Contact and droplet isolation. (4) Obesity Qualifiers: Body mass index: BMI 34.0-34.9 Is this a current diagnosis for this admission?: Yes Plan: BMI 34.1. Diet and lifestyle modification recommended. Will obtain TSH, lipid panel and hemoglobin A1c. (5) Hypertension Qualifiers: Hypertension type: essential hypertension Qualified Code(s): I10 - Essential (primary) hypertension Is this a current diagnosis for this admission?: Yes Plan: Euvolemic, mildly hypertensive. Monitor blood pressure, PRN IV hydralazine and metoprolol. May consider ROXI if A1c elevated. Adjust meds as needed. Outpatient PCP follow-up. - Time Time Spent with patient: 35 or more minutes Medications reviewed and adjusted accordingly: Yes Anticipated Discharge Disposition: Home, Self Care Anticipated Discharge Timeframe: within 72 hours
[2020-01-26] MEDS ORDERED: DEXTROSE 40% GEL 15 GM TUBE PO PRN ×2 (23:20)
[2020-01-26] MEDS ORDERED: DEXTROSE 50%-WATER 25 GM/50 ML DISP.SYRIN IV PRN ×2 (23:20)
[2020-01-26] MEDS ORDERED: GLUCAGON,HUMAN RECOMB 1 MG INJ IM PRN (23:20)
[2020-01-26] MEDS ORDERED: DEXAMETHASONE SOD PHOSPHATE INJ 4 MG/1 ML VIAL IV ONE (23:30)
[2020-01-27] MEDS: NORMAL SALINE 1000 ML 1,000 ML IV PRN ×2 (00:07→17:33)
[2020-01-27] MEDS: INSULIN LISPRO 100 UNIT/ML 3 ML VIAL SUBCUT SCH ×5 (00:59→18:35)
[2020-01-27 05:56] LABS: HEMATOCRIT 34.2 % (36.0-47.0); HEMOGLOBIN 11.6 g/dL (12.0-15.5); MEAN CORPUSCULAR HEMOGLOBIN 28.3 pg (27.0-33.4); MEAN CORPUSCULAR HGB CONC 34.1 g/dL (32.0-36.0); MEAN CORPUSCULAR VOLUME 83 fl (80-97); PLATELET COUNT 296 10^3/uL (150-450); RED BLOOD COUNT 4.12 10^6/uL (3.72-5.28); RED CELL DISTRIBUTION WIDTH 13.3 % (11.5-14.0); WHITE BLOOD COUNT 15.3 10^3/uL (4.0-10.5)
[2020-01-27] MEDS ORDERED: DEXAMETHASONE SOD PHOSPHATE INJ 4 MG/1 ML VIAL IV SCH (06:00)
[2020-01-27 06:19] LABS: ALBUMIN 3.5 g/dL (3.5-5.0); ALKALINE PHOSPHATASE 77 U/L (38-126); ANION GAP 7 (5-19); ASPARTATE AMINO TRANSFERASE 25 U/L (14-36); BILIRUBIN,DIRECT 0.5 mg/dL (0.0-0.4); BILIRUBIN,TOTAL 0.8 mg/dL (0.2-1.3); BLOOD UREA NITROGEN 7 mg/dL (7-20); CALCIUM 8.6 mg/dL (8.4-10.2); CARBON DIOXIDE 27 mmol/L (22-30); CHLORIDE 102 mmol/L (98-107); CHOLESTEROL 176.17 mg/dL (0-200); GLUCOSE 156 mg/dL (75-110); POTASSIUM 4.2 mmol/L (3.6-5.0); TRIGLYCERIDES 117 mg/dL (<150)
[2020-01-27 06:29] LABS: DIRECT LDL 105 mg/dL (<100)
[2020-01-27 06:35] LABS: FREE T4 (FREE THYROXINE) 1.27 ng/dL (0.78-2.19)
[2020-01-27 06:49] LABS: THYROID STIMULATING HORMONE 0.92 uIU/mL (0.47-4.68)
[2020-01-27] MEDS: IPRATROPIUM/ALBUTEROL 0.5-2.5 MG/3 ML AMPUL NEB SCH ×3 (08:05→20:12)
[2020-01-27] MEDS ORDERED: DOCUSATE SODIUM 100 MG/10 ML UDC PO SCH (10:00)
[2020-01-27] MEDS: ZINC SULFATE 220 MG CAPSULE PO SCH (10:09)
[2020-01-27] MEDS: AMLODIPINE BESYLATE 5 MG TABLET PO SCH (10:14)
[2020-01-27] MEDS: ASCORBIC ACID 500 MG TABLET PO SCH ×2 (10:15→17:30)
[2020-01-27] MEDS: ENOXAPARIN SODIUM INJ 80 MG/0.8 ML DISP.SYRIN SUBCUT SCH ×2 (10:17→21:20)
[2020-01-27] MEDS: FAMOTIDINE 20 MG TABLET PO SCH ×2 (10:18→21:20)
--- NOTE | 2020-01-27 11:35 | PDOC PROGRESS REPORT ---
Subjective Progress Note for:: 01/27/20 Subjective:: Patient feels better today. She states her breathing is improved. She is also down from 7 L to 4 L nasal cannula. 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 She denies any notable swelling or pain in her legs. She denies any fever or chills. Reason For Visit: PE,ACUTE RESPIRATORY FAILURE WITH HYPOXIA Physical Exam Vital Signs: Temp Pulse Resp BP Pulse Ox 98.0 F 83 19 136/78 H 92 01/27/20 08:46 01/27/20 08:46 01/27/20 08:46 01/27/20 08:46 01/27/20 08:46 Intake & Output 01/26/20 01/27/20 01/28/20 06:59 06:59 06:59 Intake Total 1366 111 Output Total 800 Balance 566 111 Weight 78.9 kg General appearance: PRESENT: no acute distress, cooperative Neck exam: ABSENT: JVD Respiratory exam: PRESENT: crackles - Lower lung field, symmetrical, unlabored. ABSENT: tachypnea, wheezes Cardiovascular exam: PRESENT: RRR, +S1, +S2. ABSENT: tachycardia GI/Abdominal exam: PRESENT: soft. ABSENT: rebound, rigid, tenderness Extremities exam: ABSENT: calf tenderness Neurological exam: PRESENT: alert, awake, oriented to person, oriented to place, oriented to time Results Laboratory Results: 01/27/20 04:00 01/27/20 04:00 01/26/20 01/26/20 01/26/20 13:50 13:50 13:50 WBC 14.7 H RBC 4.67 Hgb 13.2 Hct 38.7 MCV 83 MCH 28.3 MCHC 34.1 RDW 13.3 Plt Count 507 H Seg Neutrophils % 76.8 Carbonic Acid HCO3/H2CO3 Ratio ABG pH ABG pCO2 ABG pO2 ABG HCO3 ABG O2 Saturation ABG Base Excess FiO2 Sodium 138.7 Potassium 4.0 Chloride 101 Carbon Dioxide 29 Anion Gap 9 BUN 7 Creatinine 0.86 Est GFR ( Amer) > 60 Glucose 138 H Lactic Acid Calcium 9.3 Magnesium Ferritin 156.00 Total Bilirubin 0.7 AST 30 Alkaline Phosphatase 88 C-Reactive Protein 242.2 H Total Protein 7.9 Albumin 4.1 Triglycerides Cholesterol LDL Cholesterol Direct VLDL Cholesterol HDL Cholesterol TSH Free T4 01/26/20 01/26/20 01/27/20 14:53 21:41 04:00 WBC 15.3 H RBC 4.12 Hgb 11.6 L Hct 34.2 L MCV 83 MCH 28.3 MCHC 34.1 RDW 13.3 Plt Count 296 Seg Neutrophils % Carbonic Acid 1.20 HCO3/H2CO3 Ratio 22:1 ABG pH 7.45 ABG pCO2 39.8 ABG pO2 65.3 L ABG HCO3 26.9 H ABG O2 Saturation 93.7 L ABG Base Excess 2.7 FiO2 4L Sodium Potassium Chloride Carbon Dioxide Anion Gap BUN Creatinine Est GFR ( Amer) Glucose Lactic Acid 1.8 Calcium Magnesium Ferritin Total Bilirubin AST Alkaline Phosphatase C-Reactive Protein Total Protein Albumin Triglycerides Cholesterol LDL Cholesterol Direct VLDL Cholesterol HDL Cholesterol TSH Free T4 01/27/20 01/27/20 04:00 04:00 WBC RBC Hgb Hct MCV MCH MCHC RDW Plt Count Seg Neutrophils % Carbonic Acid HCO3/H2CO3 Ratio ABG pH ABG pCO2 ABG pO2 ABG HCO3 ABG O2 Saturation ABG Base Excess FiO2 Sodium 136.1 L Potassium 4.2 Chloride 102 Carbon Dioxide 27 Anion Gap 7 BUN 7 Creatinine 0.70 Est GFR ( Amer) > 60 Glucose 156 H Lactic Acid Calcium 8.6 Magnesium 2.1 Ferritin Total Bilirubin 0.8 AST 25 Alkaline Phosphatase 77 C-Reactive Protein Total Protein 7.0 Albumin 3.5 Triglycerides 117 Cholesterol 176.17 LDL Cholesterol Direct 105 H VLDL Cholesterol 23.0 HDL Cholesterol 30 L TSH 0.92 Free T4 1.27 01/26/20 01/26/20 13:50 13:50 Troponin I < 0.012 NT-Pro-B Natriuret Pep 226 H Impressions: Chest X-Ray 01/26/20 00:00 IMPRESSION: Low lung volumes. Right pleural effusion. Cannot exclude minimal left pleural effusion. Borderline heart size as described. No karson pulmonary edema. Chest/Abdomen CTA 01/26/20 13:24 IMPRESSION: Multiple bilateral segmental and subsegmental pulmonary emboli with findings of early right heart strain. While peripheral multifocal airspace opacities may represent small pulmonary infarcts, superimposed infection is not excluded. Assessment and Plan - Diagnosis (1) Acute respiratory failure with hypoxemia Is this a current diagnosis for this admission?: Yes Plan: Likely secondary to submassive pulmonary embolism She also notably has some infiltrates on her chest CT which I suspect is probably lung infarct especially given her hemoptysis more so than a pneumonia. I will discontinue ceftriaxone for now. Patient is also being treated for suspected COVID-19 infection which could be in itself a predisposing factor for VTE. I will leave patient on azithromycin and vitamin supplements and zinc for now pending the result of a COVID-19 test. Tolerating 4 L nasal cannula today. We will try to wean if possible. (2) Bilateral pulmonary embolism Is this a current diagnosis for this admission?: Yes Plan: Patient has submassive pulmonary embolism as depicted by bilateral multiple PEs with CT and EKG findings of right heart strain. Unfortunately, the echo was not able to visualize the right heart to evaluate for RV dysfunction/strain pattern. We will continue patient on Lovenox therapeutic dose and plan to transition to OAC at some point. Will monitor for any worsening of her hemoptysis. Oxygen supplementation as needed. (3) Hypertension Qualifiers: Hypertension type: essential hypertension Qualified Code(s): I10 - Essential (primary) hypertension Is this a current diagnosis for this admission?: Yes Plan: Continue amlodipine (4) Obesity Qualifiers: Body mass index: BMI 34.0-34.9 Is this a current diagnosis for this admission?: Yes Plan: BMI 34.1. Diet and lifestyle modification recommended. Lipid panel is unimpressive and hemoglobin A1c is in the prediabetic to normal range. - Time Time Spent with patient: 15-24 minutes Anticipated Discharge Disposition: Home, Self Care Anticipated Discharge Timeframe: within 48 hours
--- NOTE | 2020-01-27 14:44 | EKG REPORT ---
SEVERITY:- BORDERLINE ECG - SINUS RHYTHM BORDERLINE T ABNORMALITIES, INFERIOR LEADS BORDERLINE PROLONGED QT INTERVAL : Confirmed by: Misty Pichardo MD 27-Jan-2020 14:42:58
[2020-01-27] MEDS ORDERED: CEFTRIAXONE 1 GM/D5W RTU 1 GM/50 ML RTUPB IV SCH (18:00)
[2020-01-27] MEDS: TEMAZEPAM 7.5 MG CAPSULE PO SCH (21:20)
[2020-01-27] MEDS: MONTELUKAST SODIUM 10 MG TABLET PO SCH (21:21)
[2020-01-27] MEDS: AZITHROMYCIN 500 MG in DEXTROSE 5%-WATER 250 ML IV SCH (21:31)
[2020-01-28] MEDS: INSULIN LISPRO 100 UNIT/ML 3 ML VIAL SUBCUT SCH ×5 (00:14→17:28)
[2020-01-28] MEDS: IPRATROPIUM/ALBUTEROL 0.5-2.5 MG/3 ML AMPUL NEB SCH ×3 (07:45→19:53)
[2020-01-28] MEDS ORDERED: ACETAMINOPHEN 325 MG TABLET PO PRN (08:00)
[2020-01-28] MEDS ORDERED: OXYCODONE-ACETAMINOPHEN 5-325 MG TABLET PO PRN (08:01)
[2020-01-28] MEDS ORDERED: ONDANSETRON HCL INJ/PF 4 MG/2 ML SDV IV PRN (09:00)
[2020-01-28] MEDS ORDERED: PROMETHAZINE HCL INJ 25 MG/1 ML VIAL IV PRN (09:00)
[2020-01-28] MEDS: ASCORBIC ACID 500 MG TABLET PO SCH ×2 (09:14→17:23)
[2020-01-28] MEDS: AMLODIPINE BESYLATE 5 MG TABLET PO SCH (09:14)
[2020-01-28] MEDS: CHOLECALCIFEROL (D3) 1,000 UNIT (25 MCG) TABLET PO SCH (09:14)
[2020-01-28] MEDS: FAMOTIDINE 20 MG TABLET PO SCH ×2 (09:14→21:21)
[2020-01-28] MEDS: ZINC SULFATE 220 MG CAPSULE PO SCH (09:14)
[2020-01-28] MEDS: DEXAMETHASONE SOD PHOS INJ 10 MG/1 ML VIAL IV SCH (09:15)
[2020-01-28] MEDS: DOCUSATE SODIUM 100 MG CAPSULE PO SCH (09:15)
[2020-01-28 09:48] LABS: HEMATOCRIT 35.8 % (36.0-47.0); HEMOGLOBIN 11.9 g/dL (12.0-15.5); MEAN CORPUSCULAR HEMOGLOBIN 27.9 pg (27.0-33.4); MEAN CORPUSCULAR HGB CONC 33.3 g/dL (32.0-36.0); MEAN CORPUSCULAR VOLUME 84 fl (80-97); PLATELET COUNT 569 10^3/uL (150-450); RED BLOOD COUNT 4.29 10^6/uL (3.72-5.28); RED CELL DISTRIBUTION WIDTH 13.4 % (11.5-14.0); WHITE BLOOD COUNT 15.5 10^3/uL (4.0-10.5)
[2020-01-28] MEDS ORDERED: REMDESIVIR (EUA) 200 MG in NORMAL SALINE 250 ML IV ONE (10:00)
[2020-01-28] MEDS ORDERED: ENOXAPARIN SODIUM INJ 80 MG/0.8 ML DISP.SYRIN SUBCUT SCH (10:00)
--- NOTE | 2020-01-28 16:38 | PDOC PROGRESS REPORT ---
Subjective Progress Note for:: 01/28/20 Subjective:: Patient feels well today. 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 Also spent time discussing goals of care for her. Reason For Visit: PE,ACUTE RESPIRATORY FAILURE WITH HYPOXIA Physical Exam Vital Signs: Temp Pulse Resp BP Pulse Ox 97.9 F 88 17 151/87 H 93 01/28/20 15:42 01/28/20 15:42 01/28/20 15:42 01/28/20 15:42 01/28/20 15:42 Intake & Output 01/27/20 01/28/20 01/29/20 06:59 06:59 06:59 Intake Total 1366 2826 1490 Output Total 800 350 Balance 566 2476 1490 Weight 78.9 kg 79.6 kg General appearance: PRESENT: no acute distress, cooperative Neck exam: ABSENT: JVD Respiratory exam: PRESENT: crackles, symmetrical, unlabored. ABSENT: tachypnea, wheezes Cardiovascular exam: PRESENT: RRR, +S1, +S2. ABSENT: tachycardia GI/Abdominal exam: PRESENT: soft. ABSENT: rebound, rigid, tenderness Neurological exam: PRESENT: alert, awake, oriented to person, oriented to place, oriented to time, oriented to situation Psychiatric exam: ABSENT: agitated, anxious Focused psych exam: ABSENT: pressured speech Skin exam: PRESENT: intact. ABSENT: jaundice Results Laboratory Results: 01/28/20 09:35 01/27/20 04:00 01/28/20 09:35 WBC 15.5 H RBC 4.29 Hgb 11.9 L Hct 35.8 L MCV 84 MCH 27.9 MCHC 33.3 RDW 13.4 Plt Count 569 H 01/26/20 01/26/20 13:50 13:50 Troponin I < 0.012 NT-Pro-B Natriuret Pep 226 H Impressions: Chest X-Ray 01/26/20 00:00 IMPRESSION: Low lung volumes. Right pleural effusion. Cannot exclude minimal left pleural effusion. Borderline heart size as described. No karson pulmonary edema. Chest/Abdomen CTA 01/26/20 13:24 IMPRESSION: Multiple bilateral segmental and subsegmental pulmonary emboli with findings of early right heart strain. While peripheral multifocal airspace opacities may represent small pulmonary infarcts, superimposed infection is not excluded. Assessment and Plan - Diagnosis (1) Acute respiratory failure with hypoxemia Is this a current diagnosis for this admission?: Yes Plan: Likely secondary to submassive pulmonary embolism +/- COVID 19 infection She is down to 3 L nasal cannula today. We will try to wean if possible. (2) Bilateral pulmonary embolism Is this a current diagnosis for this admission?: Yes Plan: Patient has submassive pulmonary embolism as depicted by bilateral multiple PEs with CT and EKG findings of right heart strain. Unfortunately, the echo was not able to visualize the right heart to evaluate for RV dysfunction/strain pattern. Patient has not had any recurrence of her hemoptysis throughout yesterday and today. As such I will go ahead and switch her to Eliquis p.o. especially as she is reluctant to more Lovenox needlesticks. Oxygen supplementation as needed. 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 She will require 3 to 6 months of anticoagulation. (3) COVID-19 virus infection Is this a current diagnosis for this admission?: Yes Plan: COVID-19 test came back positive[address] does show some infiltrative process in the lower lung which could be pulmonary infarction from her PE especially given hem optysis and thrombus burden but could also be COVID acute pneumonia Continue azithromycin Dexamethasone IV Initiated on Remdesivir (4) Hypertension Qualifiers: Hypertension type: essential hypertension Qualified Code(s): I10 - E ssential (primary) hypertension Is this a current diagnosis for this admission?: Yes Plan: Continue amlodipine (5) Obesity Qualifiers: Body mass index: BMI 34.0-34.9 Is this a current diagnosis for this admission?: Yes Plan: BMI 34.1. Diet and lifestyle modification recommended. Lipid panel is unimpressive and hemoglobin A1c is in the prediabetic to normal range. - Time Time Spent with patient: 15-24 minutes Anticipated Discharge Disposition: Home, Self Care Anticipated Discharge Timeframe: within 48 hours
--- NOTE | 2020-01-28 16:41 | ADVANCED CARE ---
- Diagnosis (1) Acute respiratory failure with hypoxemia Diagnosis Current: Yes (2) Bilateral pulmonary embolism Diagnosis Current: Yes (3) COVID-19 virus infection Diagnosis Current: Yes Attendance: Patient and myself Resuscitation Status: Full Code Discussion: I talked to patient very in depth and elaborately at about her current conditions and how the prognosis could very especially with a COVID-19 pneumonia. Discussed how a lot of people end up doing well but how a good amount of patients end up doing poorly. Also discussed her CODE STATUS with her which she initially made a DNR/DNI and discussed with her about the real possibility that if her condition progresses in light of her submassive PE and COVID-19 infection, reevaluating intubation status might be lifesaving. Discussed mortality rate of COVID-19 infection. After elaborate conversation, patient opts for full treatment and full CODE STATUS and states that her family and her children would want to see her live long. Time Spent: 20mins
[2020-01-28] MEDS: AZITHROMYCIN 500 MG in DEXTROSE 5%-WATER 250 ML IV SCH (21:16)
[2020-01-28] MEDS: MONTELUKAST SODIUM 10 MG TABLET PO SCH (21:21)
[2020-01-28] MEDS: APIXABAN 5 MG TABLET PO SCH (21:21)
[2020-01-28] MEDS: TEMAZEPAM 7.5 MG CAPSULE PO SCH (21:21)
[2020-01-29] MEDS: INSULIN LISPRO 100 UNIT/ML 3 ML VIAL SUBCUT SCH ×5 (00:03→22:00)
[2020-01-29] MEDS: IPRATROPIUM/ALBUTEROL 0.5-2.5 MG/3 ML AMPUL NEB SCH ×3 (07:40→19:51)
[2020-01-29] MEDS: DEXAMETHASONE SOD PHOS INJ 10 MG/1 ML VIAL IV SCH (09:29)
[2020-01-29] MEDS: APIXABAN 5 MG TABLET PO SCH ×2 (09:29→21:30)
[2020-01-29] MEDS: CHOLECALCIFEROL (D3) 1,000 UNIT (25 MCG) TABLET PO SCH (09:30)
[2020-01-29] MEDS: ZINC SULFATE 220 MG CAPSULE PO SCH (09:30)
[2020-01-29] MEDS: AMLODIPINE BESYLATE 5 MG TABLET PO SCH (09:30)
[2020-01-29] MEDS: DOCUSATE SODIUM 100 MG CAPSULE PO SCH (09:30)
[2020-01-29] MEDS: FAMOTIDINE 20 MG TABLET PO SCH ×2 (09:30→21:30)
[2020-01-29] MEDS: ASCORBIC ACID 500 MG TABLET PO SCH ×2 (09:30→17:47)
[2020-01-29] MEDS: REMDESIVIR (EUA) 100 MG in NORMAL SALINE 250 ML IV SCH (11:01)
--- NOTE | 2020-01-29 16:15 | PDOC PROGRESS REPORT ---
Subjective Progress Note for:: 01/29/20 Subjective:: Patient feels good today in terms of her breathing. She is down to 2 L on nasal cannula. She has no respiratory distress and no shortness of breath. Hemoptysis is also not recurred. Reason For Visit: PE,ACUTE RESPIRATORY FAILURE WITH HYPOXIA Physical Exam Vital Signs: Temp Pulse Resp BP Pulse Ox 98.1 F 91 16 142/74 H 95 01/29/20 12:38 01/29/20 14:08 01/29/20 14:08 01/29/20 12:38 01/29/20 14:08 Intake & Output 01/28/20 01/29/20 01/30/20 06:59 06:59 06:59 Intake Total 2826 2620 Output Total 350 Balance 2476 2620 Weight 79.6 kg 79 kg General appearance: PRESENT: no acute distress, cooperative Neck exam: ABSENT: JVD Respiratory exam: PRESENT: crackles - Right lower lobe lung, symmetrical, unlabored. ABSENT: tachypnea, wheezes Cardiovascular exam: PRESENT: RRR, +S1, +S2. ABSENT: tachycardia GI/Abdominal exam: PRESENT: soft. ABSENT: rebound, rigid, tenderness Neurological exam: PRESENT: alert, awake, oriented to person, oriented to place, oriented to time Results Laboratory Results: 01/28/20 09:35 01/27/20 04:00 01/26/20 01/26/20 13:50 13:50 Troponin I < 0.012 NT-Pro-B Natriuret Pep 226 H Impressions: Chest X-Ray 01/26/20 00:00 IMPRESSION: Low lung volumes. Right pleural effusion. Cannot exclude minimal left pleural effusion. Borderline heart size as described. No karson pulmonary edema. Chest/Abdomen CTA 01/26/20 13:24 IMPRESSION: Multiple bilateral segmental and subsegmental pulmonary emboli with findings of early right heart strain. While peripheral multifocal airspace opacities may represent small pulmonary infarcts, superimposed infection is not excluded. Assessment and Plan - Diagnosis (1) Acute respiratory failure with hypoxemia Is this a current diagnosis for this admission?: Yes Plan: Likely secondary to submassive pulmonary embolism +/- COVID 19 infection She is down to 2 L nasal cannula today. We will try to wean if possible. (2) Bilateral pulmonary embolism Is this a current diagnosis for this admission?: Yes Plan: Patient has submassive pulmonary embolism as depicted by bilateral multiple PEs with CT and EKG findings of right heart strain. Unfortunately, the echo was not able to visualize the right heart to evaluate for RV dysfunction/strain pattern. Continue Eliquis Oxygen supplementation as needed. 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 She will require 3 to 6 months of anticoagulation. (3) COVID-19 virus infection Is this a current diagnosis for this admission?: Yes Plan: COVID-19 test came back positive. CT does show some infiltrative process in the lower lung which could be pulmonary infarction from her PE especially given hemoptysis and thrombus burden but could also be COVID acute pneumonia Continue azithromycin Dexamethasone IV Remdesivir (4) Hypertension Qualifiers: Hypertension type: essential hypertension Qualified Code(s): I10 - Essential (primary) hypertension Is this a current diagnosis for this admission?: Yes Plan: Continue amlodipine (5) Obesity Qualifiers: Body mass index: BMI 34.0-34.9 Is this a current diagnosis for this admission?: Yes Plan: BMI 34.1. Diet and lifestyle modification recommended. Lipid panel is u nimpressive and hemoglobin A1c is in the prediabetic to normal range. - Time Time Spent with patient: 15-24 minutes Anticipated Discharge Disposition: Home, Self Care Anticipated Discharge Timeframe: within 72 hours
[2020-01-29] MEDS: MONTELUKAST SODIUM 10 MG TABLET PO SCH (21:30)
[2020-01-29] MEDS: TEMAZEPAM 7.5 MG CAPSULE PO SCH (21:30)
[2020-01-29] MEDS: AZITHROMYCIN 500 MG in DEXTROSE 5%-WATER 250 ML IV SCH (21:30)
[2020-01-30] MEDS: IPRATROPIUM/ALBUTEROL 0.5-2.5 MG/3 ML AMPUL NEB SCH ×3 (07:45→20:14)
[2020-01-30] MEDS: INSULIN LISPRO 100 UNIT/ML 3 ML VIAL SUBCUT SCH ×2 (08:15→12:00)
[2020-01-30] MEDS: FAMOTIDINE 20 MG TABLET PO SCH ×2 (10:26→21:24)
[2020-01-30] MEDS: DOCUSATE SODIUM 100 MG CAPSULE PO SCH (10:26)
[2020-01-30] MEDS: AMLODIPINE BESYLATE 5 MG TABLET PO SCH (10:26)
[2020-01-30] MEDS: ZINC SULFATE 220 MG CAPSULE PO SCH (10:26)
[2020-01-30] MEDS: CHOLECALCIFEROL (D3) 1,000 UNIT (25 MCG) TABLET PO SCH (10:26)
[2020-01-30] MEDS: APIXABAN 5 MG TABLET PO SCH ×2 (10:26→21:24)
[2020-01-30] MEDS: ASCORBIC ACID 500 MG TABLET PO SCH ×2 (10:26→17:20)
[2020-01-30] MEDS: REMDESIVIR (EUA) 100 MG in NORMAL SALINE 250 ML IV SCH (10:27)
[2020-01-30] MEDS: DEXAMETHASONE SOD PHOS INJ 10 MG/1 ML VIAL IV SCH (10:27)
--- NOTE | 2020-01-30 12:06 | PDOC PROGRESS REPORT ---
Subjective Progress Note for:: 01/30/20 Subjective:: Patient is doing well today. She has no complaints. She is having no shortness of breath. She was able to be weaned down to room air today. We will keep on room air for today and see how she does. Reason For Visit: PE,ACUTE RESPIRATORY FAILURE WITH HYPOXIA Physical Exam Vital Signs: Temp Pulse Resp BP Pulse Ox 97.6 F 71 21 H 138/81 H 97 01/30/20 07:22 01/30/20 08:04 01/30/20 08:04 01/30/20 08:04 01/30/20 08:04 Intake & Output 01/29/20 01/30/20 01/31/20 06:59 06:59 06:59 Intake Total 2619 2019 250 Balance 2619 2019 250 Weight 79 kg 79.4 kg General appearance: PRESENT: no acute distress, cooperative Head exam: PRESENT: normocephalic Eye exam: PRESENT: EOMI Neck exam: ABSENT: JVD Respiratory exam: PRESENT: symmetrical, unlabored. ABSENT: accessory muscle use, tachypnea Cardiovascular exam: ABSENT: irregular rhythm, tachycardia GI/Abdominal exam: ABSENT: distended Neurological exam: PRESENT: alert, awake, oriented to person, oriented to place Results Laboratory Results: 01/28/20 09:35 01/27/20 04:00 01/26/20 01/26/20 13:50 13:50 Troponin I < 0.012 NT-Pro-B Natriuret Pep 226 H Impressions: Chest X-Ray 01/26/20 00:00 IMPRESSION: Low lung volumes. Right pleural effusion. Cannot exclude minimal left pleural effusion. Borderline heart size as described. No karson pulmonary edema. Chest/Abdomen CTA 01/26/20 13:24 IMPRESSION: Multiple bilateral segmental and subsegmental pulmonary emboli with findings of early right heart strain. While peripheral multifocal airspace opacities may represent small pulmonary infarcts, superimposed infection is not excluded. Assessment and Plan - Diagnosis (1) Acute respiratory failure with hypoxemia Is this a current diagnosis for this admission?: Yes Plan: Likely secondary to submassive pulmonary embolism +/- COVID 19 infection Doing well currently. Today she is on room air. We will keep on room air for today. (2) Bilateral pulmonary embolism Is this a current diagnosis for this admission?: Yes Plan: Patient has submassive pulmonary embolism as depicted by bilateral multiple PEs with CT and EKG findings of right heart strain. Unfortunately, the echo was not able to visualize the right heart to evaluate for RV dysfunction/strain pattern. 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 She will require 3 to 6 months of anticoagulation. (3) COVID-19 virus infection Is this a current diagnosis for this admission?: Yes Plan: COVID-19 test came back positive. CT does show some infiltrative process in the lower lung which could be pulmonary infarction from her PE especially given hemoptysis and thrombus burden but could also be COVID acute pneumonia Continue azithromycin Dexamethasone IV Remdesivir (4) Hypertension Qualifiers: Hypertension type: essential hypertension Qualified Code(s): I10 - Essential (primary) hypertension Is this a current diagnosis for this admission?: Yes Plan: Continue amlodipine (5) Obesity Qualifiers: Body mass index: BMI 34.0-34.9 Is this a current diagnosis for this admission?: Yes - Time Time Spent with patient: Less than 15 minutes Anticipated Discharge Disposition: Home, Self Care Anticipated Discharge Timeframe: within 36 hours
[2020-01-30] MEDS: AZITHROMYCIN 500 MG in DEXTROSE 5%-WATER 250 ML IV SCH (21:23)
[2020-01-30] MEDS: MONTELUKAST SODIUM 10 MG TABLET PO SCH (21:24)
[2020-01-30] MEDS: TEMAZEPAM 7.5 MG CAPSULE PO SCH (21:24)
[2020-01-31] MEDS: IPRATROPIUM/ALBUTEROL 0.5-2.5 MG/3 ML AMPUL NEB SCH (07:29)
[2020-01-31] MEDS: APIXABAN 5 MG TABLET PO SCH (09:24)
[2020-01-31] MEDS: ASCORBIC ACID 500 MG TABLET PO SCH (09:24)
[2020-01-31] MEDS: DEXAMETHASONE SOD PHOS INJ 10 MG/1 ML VIAL IV SCH (09:24)
[2020-01-31] MEDS: DOCUSATE SODIUM 100 MG CAPSULE PO SCH (09:24)
[2020-01-31] MEDS: FAMOTIDINE 20 MG TABLET PO SCH (09:24)
[2020-01-31] MEDS: CHOLECALCIFEROL (D3) 1,000 UNIT (25 MCG) TABLET PO SCH (09:24)
[2020-01-31] MEDS: AMLODIPINE BESYLATE 5 MG TABLET PO SCH (09:24)
[2020-01-31] MEDS: ZINC SULFATE 220 MG CAPSULE PO SCH (09:24)
[2020-01-31] MEDS: REMDESIVIR (EUA) 100 MG in NORMAL SALINE 250 ML IV SCH ×2 (10:23→10:36)
--- NOTE | 2020-01-31 10:56 | PDOC DISCHARGE SUMMARY ---
Impression - Admit/DC Date/PCP Admission Date/Primary Care Provider: 01/26/20 20:21 Discharge Date: 01/31/20 - Discharge Diagnosis (1) Acute respiratory failure with hypoxemia Is this a current diagnosis for this admission?: Yes (2) Bilateral pulmonary embolism Is this a current diagnosis for this admission?: Yes (3) COVID-19 virus infection Is this a current diagnosis for this admission?: Yes (4) Hypertension Is this a current diagnosis for this admission?: Yes (5) Obesity Is this a current diagnosis for this admission?: Yes - Additional Information Resuscitation Status: Full Code Discharge Diet: As Tolerated Discharge Activity: Activity As Tolerated Referrals: [facility] [Outside] ANGELITO FLOOD FNP [NURSE PRACTITIONER] - Prescriptions: Apixaban [Eliquis 5 mg Tablet] See Protocol PO Q12 30 Days #66 tablet Ascorbic Acid [Vitamin C 500 mg Tablet] 1,500 mg PO DAILY #30 tablet Home Medications: Amlodipine Besylate [Norvasc 5 mg Tablet] 5 mg PO DAILY 01/26/20 Montelukast Sodium [Singulair 10 mg Tablet] 10 mg PO QHS 01/26/20 Apixaban [Eliquis 5 mg Tablet] See Protocol PO Q12 30 Days #66 tablet 01/31/20 Ascorbic Acid [Vitamin C 500 mg Tablet] 1,500 mg PO DAILY #30 tablet 01/31/20 History of Present Illiness History of Present Illness: According to admitting provider: DIANA ZABALA is a 59 year old female No significant past medical history 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 In ED she was noted to be hypoxic, tachypneic, tachycardic, hyperte nsive, with leukocytosis and a CTA showed multiple bilateral segmental subsegmental pulmonary emboli with findings of early right heart strain, EKG T wave inversion and troponins were negative, a stat echo was done to rule out any right heart strain but unfortunately 2D echo was suboptimal and right ventricular function could not be assessed, attempt was made to transfer patient to tertiary center however they were not able and as per ED physician they suggested that patient can be managed at [facility] as she seems to be stable. Patient denies any fever, chills, nausea, vomiting, denies any history of previous DVT or PE, any lower extremity swelling or pain, tobacco abuse, denies any history of oral contraceptive intake or recent hospitalization or surgery, denies any recent travel, denies any personal or family history of hypercoagulable state. In ED patient was started on heparin drip and empiric IV antibiotics as patient may likely have COVID-19 given her presentation and nature of her work. Hospital Course Hospital Course: Patient was admitted to the hospitalist with respiratory distress, hemoptysis and acute hypoxic respiratory failure. ABG obtained showed hypoxemia with PO2 of 62 on 4 L nasal cannula. CBC was notable for leukocytosis. CTA of the chest revealed bilateral pulmonary embolism with evidence of early right heart strain. EKG was consistent with right heart strain pattern. Patient was however hemodynamically stable and was thought to have a submassive pulmonary embolism. Patient was started on anticoagulation initially with heparin drip then transitioned to Lovenox. Her hemoptysis had resolved. She was tested for coronavirus which came back positive. Notably CT of the chest also showed findings in the lower lungs which were compatible with COVID pneumonia though there was also suspicion that this could be lung infarct as well. Patient required 8 L nasal cannula initially to maintain adequate SPO2. She had also required BiPAP briefly but has been off BiPAP since first day of admission. She was initiated on Remdesivir and IV dexamethasone. She also received azithromycin. She was later transitioned to Eliquis and has been receiving loading dose for a few days now. During her hospital stay she has been able to be weaned off oxygen gradually. She spent the whole of yesterday on room air with adequate SPO2. She has improved remarkably and is not experiencing any shortness of breath anymore. She will be completing 4th dose of Remdesivir today but as she has been completely normal and ambulated today with adequate SPO2 not dropping below 95% on room air, she does not need further treatments. She will be discharged home with Eliquis to take 10 mg twice a day for 3 more days before switching over to 5 mg twice a day. I have instructed her that she will need to be on anticoagulation for 3 to 6 months at least. She will be getting refills from her primary care doctor. 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 Physical Exam Vital Signs: Temp Pulse Resp BP Pulse Ox 97.8 F 80 16 118/55 L 91 L 01/31/20 08:01 01/31/20 08:01 01/31/20 08:01 01/31/20 08:01 01/31/20 08:01 Intake & Output 01/30/20 01/31/20 02/01/20 06:59 06:59 06:59 Intake Total 2019 1020 Balance 2019 1020 Weight 79.4 kg 79.4 kg General appearance: PRESENT: no acute distress, cooperative Neck exam: ABSENT: JVD Respiratory exam: PRESENT: symmetrical. ABSENT: accessory muscle use, tachypnea Cardiovascular exam: ABSENT: tachycardia GI/Abdominal exam: ABSENT: distended Musculoskeletal exam: PRESENT: ambulatory Neurological exam: PRESENT: alert, awake, oriented to person, oriented to place, oriented to time, oriented to situation Results Laboratory Results: WBC 15.5 10^3/uL (4.0-10.5) H 01/28/20 09:35 RBC 4.29 10^6/uL (3.72-5.28) 01/28/20 09:35 Hgb 11.9 g/dL (12.0-15.5) L 01/28/20 09:35 Hct 35.8 % (36.0-47.0) L 01/28/20 09:35 MCV 84 fl (80-97) 01/28/20 09:35 MCH 27.9 pg (27.0-33.4) 01/28/20 09:35 MCHC 33.3 g/dL (32.0-36.0) 01/28/20 09:35 RDW 13.4 % (11.5-14.0) 01/28/20 09:35 Plt Count 569 10^3/uL (150-450) H 01/28/20 09:35 Lymph % (Auto) 12.8 % (13-45) L 01/26/20 13:50 Peach % (Auto) 9.8 % (3-13) 01/26/20 13:50 Eos % (Auto) 0.1 % (0-6) 01/26/20 13:50 Baso % (Auto) 0.5 % (0-2) 01/26/20 13:50 Absolute Neuts (auto) 11.3 10^3/uL (1.7-8.2) H 01/26/20 13:50 Absolute Lymphs (auto) 1.9 10^3/uL (0.5-4.7) 01/26/20 13:50 Absolute Monos (auto) 1.4 10^3/uL (0.1-1.4) 01/26/20 13:50 Absolute Eos (auto) 0.0 10^3/uL (0.0-0.6) 01/26/20 13:50 Absolute Basos (auto) 0.1 10^3/uL (0.0-0.2) 01/26/20 13:50 Seg Neutrophils % 76.8 % (42-78) 01/26/20 13:50 PT 15.8 SEC (11.4-15.4) H 01/26/20 13:50 INR 1.25 01/26/20 13:50 APTT 74.2 SEC (23.5-35.8) H 01/27/20 11:14 D-Dimer 19.50 ug/mL (0.00-0.50) H 01/26/20 20:07 Carbonic Acid 1.20 mmol/L (1.05-1.35) 01/26/20 21:41 HCO3/H2CO3 Ratio 22:1 01/26/20 21:41 ABG pH 7.45 (7.35-7.45) 01/26/20 21:41 ABG pCO2 39.8 mmHg (35-45) 01/26/20 21:41 ABG pO2 65.3 mmHg (80-100) L 01/26/20 21:41 ABG HCO3 26.9 mmol/L (20-24) H 01/26/20 21:41 ABG Total CO2 28.1 mmol/L (21-25) H 01/26/20 21:41 ABG O2 Saturation 93.7 % (94-98) L 01/26/20 21:41 ABG Base Excess 2.7 mmol/L 01/26/20 21:41 FiO2 4L 01/26/20 21:41 Sodium 136.1 mmol/L (137-145) L 01/27/20 04:00 Potassium 4.2 mmol/L (3.6-5.0) 01/27/20 04:00 Chloride 102 mmol/L (98-107) 01/27/20 04:00 Carbon Dioxide 27 mmol/L (22-30) 01/27/20 04:00 Anion Gap 7 (5-19) 01/27/20 04:00 BUN 7 mg/dL (7-20) 01/27/20 04:00 Creatinine 0.70 mg/dL (0.52-1.25) 01/27/20 04:00 Est GFR ( Amer) > 60 (>60) 01/27/20 04:00 Est GFR (MDRD) Non-Af > 60 (>60) 01/27/20 04:00 Glucose 156 mg/dL (75-110) H 01/27/20 04:00 POC Glucose 191 mg/dL (70-110) H 01/30/20 21:03 Hemoglobin A1c % 6.0 % (4.7-6.0) 01/27/20 04:00 Lactic Acid 1.8 mmol/L (0.7-2.1) 01/26/20 14:53 Calcium 8.6 mg/dL (8.4-10.2) 01/27/20 04:00 Magnesium 2.1 mg/dL (1.6-2.3) 01/27/20 04:00 Ferritin 156.00 ng/mL (11.1-264.0) 01/26/20 13:50 Total Bilirubin 0.8 mg/dL (0.2-1.3) 01/27/20 04:00 Direct Bilirubin 0.5 mg/dL (0.0-0.4) H 01/27/20 04:00 Neonat Total Bilirubin Not Reportable 01/27/20 04:00 Neonat Direct Bilirubin Not Reportable 01/27/20 04:00 Neonat Indirect Bili Not Reportable 01/27/20 04:00 AST 25 U/L (14-36) 01/27/20 04:00 ALT 18 U/L (<35) 01/27/20 04:00 Alkaline Phosphatase 77 U/L (38-126) 01/27/20 04:00 Troponin I < 0.012 ng/mL 01/26/20 13:50 C-Reactive Protein 242.2 mg/L (<10.0) H 01/26/20 13:50 NT-Pro-B Natriuret Pep 226 pg/mL (<125) H 01/26/20 13:50 Total Protein 7.0 g/dL (6.3-8.2) 01/27/20 04:00 Albumin 3.5 g/dL (3.5-5.0) 01/27/20 04:00 Triglycerides 117 mg/dL (<150) 01/27/20 04:00 Cholesterol 176.17 mg/dL (0-200) 01/27/20 04:00 LDL Cholesterol Direct 105 mg/dL (<100) H 01/27/20 04:00 VLDL Cholesterol 23.0 mg/dL (10-31) 01/27/20 04:00 HDL Cholesterol 30 mg/dL (>40) L 01/27/20 04:00 TSH 0.92 uIU/mL (0.47-4.68) 01/27/20 04:00 Free T4 1.27 ng/dL (0.78-2.19) 01/27/20 04:00 COVID-19 Source See comment 01/26/20 17:58 COVID-19 (JUSTINE) DETECTED (Not Detect) A 01/26/20 17:58 01/26/20 01/26/20 13:50 13:50 Troponin I < 0.012 NT-Pro-B Natriuret Pep 226 H Impressions: Chest X-Ray 01/26/20 00:00 IMPRESSION: Low lung volumes. Right pleural effusion. Cannot exclude minimal left pleural effusion. Borderline heart size as described. No karson pulmonary edema. Chest/Abdomen CTA 01/26/20 13:24 IMPRESSION: Multiple bilateral segmental and subsegmental pulmonary emboli with findings of early right heart strain. While peripheral multifocal airspace opacities may represent small pulmonary infarcts, superimposed infection is not excluded. Plan Time Spent: Less than 30 Minutes Stroke Is this a Stroke Patient?: No Acute Heart Failure Is this a Heart Failure Patient?: No
[2020-01-31 11:34] VITALS: BP 133/85
== END 2020-01-31 12:45 | disposition home or self-care (01) | DRG 177 ==
LOC: ER 12:27 → EH 20:21 → 3N 22:45
PROVIDERS: ADMIT Internal Medicine; ATTEND Internal Medicine
PROC: 5A09357 Assistance with Respiratory Ventilation, Less than 24 Consecutive Hours, Continuous Positive Airway Pressure (ICD-10-PCS; principal; 2020-01-26)
PROC: B24BZZ4 Ultrasonography of Heart with Aorta, Transesophageal (ICD-10-PCS; 2020-01-26)
PROC: XW033E5 Introduction of Remdesivir Anti-infective into Peripheral Vein, Percutaneous Approach, New Technology Group 5 (ICD-10-PCS; 2020-01-28)
DX: U07.1 COVID-19 (principal); I26.99 Other pulmonary embolism without acute cor pulmonale; J96.01 Acute respiratory failure with hypoxia; J12.89 Other viral pneumonia; Z66 Do not resuscitate; I10 Essential (primary) hypertension; E66.9 Obesity, unspecified; Z68.34 Body mass index [BMI] 34.0-34.9, adult; Z79.899 Other long term (current) drug therapy; Z88.0 Allergy status to penicillin
CPT/HCPCS: 36415; 71045; 71275; 80053; 80061; 82728; 82803; 82962; 83036; 83605; 83735; 83880; 84439; 84443; 84484; 85025; 85027; 85379; 85610; 85730; 86140; 87040; 87635; 93005; 93010; 93306; 94660; 96361; 96365; 96375; 99285; C9803; J0456; J0696; J1100; J1644; J1650; J1815; J2270; J2405; J3490; J7030; J7050; J7060; J7120